=== PATIENT | male | born 1975 | race Caucasian/White ===

== ENCOUNTER 2016-12-21 18:05 | Emergency (ER) | payer SELFPAY ==
[~2016-12-21 18:05] MED LIST: ADVIL200 M1 PO; BACTRIM DS1 TAB PO; BENZONATATE200 M1 PO; CLARITHROMYCIN500 M2 PO; DARVOCET-N 1001 TAB PO; IBUPROFEN800 M1 PO; MOTRIN800 MG PO; NAPROSYN375 M1 PO; NAPROSYN500 M1 PO; NO HOME MEDICATION XX; NORCO 5/325 TAB1 TAB PO; PERCOCET 5/3251 TAB PO; PROVENTIL HFA6.7 G1 IH; PROZAC; PROZAC20 M3 PO; TAMIFLU75 MG/CAP NG; ZITHROMAX250MG Z-PAK PO; ZITHROMAX500 M2 PO
[2016-12-21] MEDS ORDERED: HYDROCODON-ACE1 EA16 PO (18:45)
== END 2016-12-21 20:12 ==
LOC: EDMED 18:05
DX: N50.811 Right testicular pain (principal); Z98.52 Vasectomy status